=== PATIENT | female | born 1950 | race African-American/Black ===

== ENCOUNTER 2017-12-19 03:44 | Inpatient (IN) ==
[2017-12-19] MEDS ORDERED: niCARdipine INJ 25 MG in SODIUM CHLORIDE 0.9% 240 ML IV SCH (05:00)
[2017-12-19] MEDS ORDERED: niCARdipine 25 MG/10 ML VIAL IV ONE ×2 (05:19→12:17)
[2017-12-19 05:41] LABS: Basophils # 0.1 10*3/uL (0.0-0.2); Basophils % 0.4 % (0.0-0.8); Eosinophils % 0.2 % (0.00-10.9); Hematocrit 39.1 VOL% (35.7-47.0); Hemoglobin 12.9 GM/DL (12.0-16.0); Immature Granulocytes % 0.5 %; Immature Granulocytes Absolute 0.06 #; Lymphocytes % 16.1 % (21.3-54.2); Mean Corpuscular Hemoglobin 30 PG (27-34); Mean Corpuscular Volume 90.7 FL (87-102); Mean Platelet Volume 10.6 FL (9.6-12.0); Monocytes # 0.6 10*3/uL (0.11-0.8); Monocytes % 4.9 % (1.7-12.7); Neutrophils # 9.8 10*3/uL (1.4-7.4); Neutrophils % 77.9 % (38.7-73.9); Platelet Count 250 T/CUMM (130-400); Red Blood Count 4.31 MC/CUMM (3.8-5.5); Red Cell Distribution Width 13.2 % (9.3-17.3); White Blood Count 12.6 T/CUMM (4-12)
[2017-12-19 05:52] LABS: INR 0.9; PT Patient Result 9.8 SECS
[2017-12-19 06:03] LABS: Alanine Aminotransferase 34 U/L (13-56); Albumin 3.8 G/DL (3.4-5.0); Alkaline Phosphatase 103 U/L (45-117); Aspartate Amino Transferase 27 U/L (0-37); Blood Urea Nitrogen 17 MG/DL (7-18); Calcium 9.4 MG/DL (8.5-10.1); Glucose 189 MG/DL (74-106); Osmolality,Calculated 281.7 MOS/KG (273-304); Potassium 3.8 MMOL/L (3.5-5.1); Sodium 138 MMOL/L (136-145); Total Protein 8.2 G/DL (6.4-8.3)
[2017-12-19 06:07] LABS: Apearance,Urine CLEAR (Clear); Bilirubin,Urine Negative (Negative); Blood, Urine Small mg/dL (Negative); Glucose,Urine (UA) 50 mg/dL (Negative); Hyaline Casts,Urine 1 /LPF (0-3); Ketones,Urine Negative (Negative); Mucus,Urine Occasional /LPF (Occasional); Nitrite,Urine Negative (Negative); Protein,Urine 100 MG/DL; RBC,Urine 5 /HPF (0-4); Squamous Epithelial Cell,Urine Occasional /HPF (0-10); Urine Color Straw (Yellow); Urine Urobilinogen < 2.0 EU/DL (0.2-1.0); WBC,Urine 4 /HPF (0-6)
[2017-12-19 06:11] LABS: Troponin I Only 0.067 NG/ML (0.00-0.045)
[2017-12-19 08:12] LABS: Risk Ratio 3.15; VLDL CHOLESTEROL 33.8 MG/DL
[2017-12-19] MEDS ORDERED: GLUCAGON 1 MG VIAL IM PRN (08:20)
[2017-12-19] MEDS ORDERED: DEXTROSE 50% 25 GM/50 ML VIAL IV PRN (08:20)
[2017-12-19] MEDS ORDERED: hydrALAZINE 20 MG/1 ML VIAL IV PRN (10:17)
[2017-12-19] MEDS ORDERED: PANTOPRAZOLE 40 MG TABLET PO ONE (12:09)
[2017-12-19] MEDS: INSULIN LISPRO 100 UNIT/ML SUBCUT SCH ×3 (12:15→21:33)
[2017-12-19] MEDS: PANTOPRAZOLE 40 MG TABLET PO SCH (12:16)
[2017-12-19] MEDS: METOPROLOL SUCCINATE XL 50 MG TABLET PO SCH ×2 (12:16→21:34)
[2017-12-19] MEDS: ASPIRIN EC 81 MG TABLET PO SCH (12:16)
[2017-12-19] MEDS: ATORVASTATIN 40 MG TABLET PO SCH (21:34)
[2017-12-20 05:50] LABS: Basophils % 0.4 % (0.0-0.8); Eosinophils # 0.1 10*3/uL (0.0-0.87); Eosinophils % 1.3 % (0.00-10.9); Hemoglobin 12.2 GM/DL (12.0-16.0); Immature Granulocytes % 0.3 %; Immature Granulocytes Absolute 0.03 #; Lymphocytes # 3.2 10*3/uL (1.4-4.0); Lymphocytes % 34.8 % (21.3-54.2); Mean Corpuscular Hemoglobin 30 PG (27-34); Mean Corpuscular Volume 89.8 FL (87-102); Mean Platelet Volume 10.7 FL (9.6-12.0); Monocytes # 0.7 10*3/uL (0.11-0.8); Monocytes % 7.4 % (1.7-12.7); Neutrophils # 5.1 10*3/uL (1.4-7.4); Neutrophils % 55.8 % (38.7-73.9); Platelet Count 253 T/CUMM (130-400); Red Blood Count 4.12 MC/CUMM (3.8-5.5); Red Cell Distribution Width 13.3 % (9.3-17.3); White Blood Count 9.1 T/CUMM (4-12)
[2017-12-20 06:15] LABS: Calcium 9.2 MG/DL (8.5-10.1); Osmolality,Calculated 280.8 MOS/KG (273-304); Potassium 3.9 MMOL/L (3.5-5.1)
[2017-12-20] MEDS: METOPROLOL SUCCINATE XL 50 MG TABLET PO SCH ×2 (08:00→21:28)
[2017-12-20] MEDS: INSULIN LISPRO 100 UNIT/ML SUBCUT SCH ×4 (08:00→21:27)
[2017-12-20] MEDS: ASPIRIN EC 81 MG TABLET PO SCH (08:00)
[2017-12-20] MEDS: PANTOPRAZOLE 40 MG TABLET PO SCH (08:00)
[2017-12-20] MEDS ORDERED: ENOXAPARIN 40 MG/0.4 ML SYRINGE SUBCUT SCH (13:30)
[2017-12-20] MEDS: CLOPIDOGREL 75 MG TABLET PO SCH (15:48)
[2017-12-20] MEDS: ATORVASTATIN 40 MG TABLET PO SCH (21:27)
[2017-12-20] MEDS: INSULIN GLARGINE 100 UNIT/ML SUBCUT SCH (21:27)
[2017-12-21 05:26] LABS: Basophils # 0.1 10*3/uL (0.0-0.2); Basophils % 1.1 % (0.0-0.8); Eosinophils # 0.2 10*3/uL (0.0-0.87); Eosinophils % 2.1 % (0.00-10.9); Hematocrit 36.8 VOL% (35.7-47.0); Hemoglobin 11.9 GM/DL (12.0-16.0); Immature Granulocytes % 0.4 %; Immature Granulocytes Absolute 0.03 #; Lymphocytes # 3.1 10*3/uL (1.4-4.0); Lymphocytes % 39.5 % (21.3-54.2); Mean Corpuscular HGB Conc 32.3 GM/DL (32-36); Mean Corpuscular Hemoglobin 30 PG (27-34); Mean Corpuscular Volume 91.1 FL (87-102); Mean Platelet Volume 10.5 FL (9.6-12.0); Monocytes # 0.7 10*3/uL (0.11-0.8); Monocytes % 8.3 % (1.7-12.7); Neutrophils # 3.9 10*3/uL (1.4-7.4); Neutrophils % 48.6 % (38.7-73.9); Platelet Count 240 T/CUMM (130-400); Red Blood Count 4.04 MC/CUMM (3.8-5.5)
[2017-12-21 05:51] LABS: Calcium 8.6 MG/DL (8.5-10.1); Osmolality,Calculated 284.7 MOS/KG (273-304)
[2017-12-21] MEDS: INSULIN LISPRO 100 UNIT/ML SUBCUT SCH ×4 (07:47→21:15)
[2017-12-21] MEDS: PANTOPRAZOLE 40 MG TABLET PO SCH (08:04)
[2017-12-21] MEDS: METOPROLOL SUCCINATE XL 50 MG TABLET PO SCH ×2 (08:04→21:13)
[2017-12-21] MEDS: CLOPIDOGREL 75 MG TABLET PO SCH (08:04)
[2017-12-21] MEDS: ATORVASTATIN 40 MG TABLET PO SCH (21:13)
[2017-12-21] MEDS: INSULIN GLARGINE 100 UNIT/ML SUBCUT SCH (21:18)
[2017-12-22] MEDS: CLOPIDOGREL 75 MG TABLET PO SCH (08:15)
[2017-12-22] MEDS: amLODIPine 2.5 MG TABLET PO SCH (08:15)
[2017-12-22] MEDS: METOPROLOL SUCCINATE XL 50 MG TABLET PO SCH ×2 (08:15→21:18)
[2017-12-22] MEDS: INSULIN LISPRO 100 UNIT/ML SUBCUT SCH ×4 (08:15→21:17)
[2017-12-22] MEDS: PANTOPRAZOLE 40 MG TABLET PO SCH (08:15)
[2017-12-22] MEDS ORDERED: INSULIN GLARGINE 100 UNIT/ML SUBCUT SCH (21:00)
[2017-12-22] MEDS: ATORVASTATIN 40 MG TABLET PO SCH (21:17)
[2017-12-23] MEDS: INSULIN LISPRO 100 UNIT/ML SUBCUT SCH ×3 (08:37→16:57)
[2017-12-23] MEDS: METOPROLOL SUCCINATE XL 50 MG TABLET PO SCH (08:38)
[2017-12-23] MEDS: CLOPIDOGREL 75 MG TABLET PO SCH (08:38)
[2017-12-23] MEDS: PANTOPRAZOLE 40 MG TABLET PO SCH (08:38)
[2017-12-23] MEDS: amLODIPine 2.5 MG TABLET PO SCH (08:42)
[2017-12-23] MEDS: amLODIPine 10 MG TABLET PO SCH (16:00)
[2017-12-23] MEDS: INSULIN NPH/REGULAR 70/30 100 UNIT/ML SUBCUT SCH (16:57)
[2017-12-23] MEDS ORDERED: LABETALOL 20 MG/4 ML SYRINGE IV ONE (17:40)
[2017-12-23] MEDS: ATORVASTATIN 40 MG TABLET PO SCH (20:26)
[2017-12-23] MEDS ORDERED: hydrALAZINE 25 MG TABLET PO SCH (21:00)
[2017-12-24] MEDS: INSULIN LISPRO 100 UNIT/ML SUBCUT SCH ×5 (00:07→21:15)
[2017-12-24 04:55] LABS: Basophils # 0.1 10*3/uL (0.0-0.2); Basophils % 0.7 % (0.0-0.8); Eosinophils # 0.2 10*3/uL (0.0-0.87); Eosinophils % 2.4 % (0.00-10.9); Hematocrit 34.8 VOL% (35.7-47.0); Hemoglobin 11.9 GM/DL (12.0-16.0); Immature Granulocytes % 0.3 %; Immature Granulocytes Absolute 0.03 #; Lymphocytes % 33.5 % (21.3-54.2); Mean Corpuscular HGB Conc 34.2 GM/DL (32-36); Mean Corpuscular Hemoglobin 30 PG (27-34); Mean Corpuscular Volume 88.3 FL (87-102); Mean Platelet Volume 10.3 FL (9.6-12.0); Monocytes # 0.7 10*3/uL (0.11-0.8); Monocytes % 7.5 % (1.7-12.7); Neutrophils # 4.9 10*3/uL (1.4-7.4); Neutrophils % 55.6 % (38.7-73.9); Platelet Count 255 T/CUMM (130-400); Red Blood Count 3.94 MC/CUMM (3.8-5.5); Red Cell Distribution Width 13.2 % (9.3-17.3); White Blood Count 8.8 T/CUMM (4-12)
[2017-12-24 05:32] LABS: Calcium 8.5 MG/DL (8.5-10.1); Osmolality,Calculated 284.5 MOS/KG (273-304); Potassium 3.9 MMOL/L (3.5-5.1)
[2017-12-24] MEDS ORDERED: METOPROLOL SUCCINATE XL 100 MG TABLET PO SCH (09:00)
[2017-12-24] MEDS: PANTOPRAZOLE 40 MG TABLET PO SCH (09:13)
[2017-12-24] MEDS: amLODIPine 10 MG TABLET PO SCH (09:13)
[2017-12-24] MEDS: CLOPIDOGREL 75 MG TABLET PO SCH (09:14)
[2017-12-24] MEDS: INSULIN NPH/REGULAR 70/30 100 UNIT/ML SUBCUT SCH (17:12)
[2017-12-24] MEDS: ATORVASTATIN 40 MG TABLET PO SCH (21:14)
[2017-12-25] MEDS ORDERED: INSULIN NPH/REGULAR 70/30 100 UNIT/ML SUBCUT SCH ×3 (07:30→16:25)
[2017-12-25] MEDS: INSULIN LISPRO 100 UNIT/ML SUBCUT SCH ×4 (09:19→20:25)
[2017-12-25] MEDS: amLODIPine 10 MG TABLET PO SCH (09:21)
[2017-12-25] MEDS: CLOPIDOGREL 75 MG TABLET PO SCH (09:22)
[2017-12-25] MEDS: METOPROLOL SUCCINATE XL 100 MG TABLET PO SCH (09:22)
[2017-12-25] MEDS: PANTOPRAZOLE 40 MG TABLET PO SCH (09:22)
[2017-12-25] MEDS ORDERED: INSULIN NPH 100 UNIT/ML SUBCUT ONE (13:35)
[2017-12-25] MEDS: INSULIN NPH/REGULAR 70/30 100 UNIT/ML SUBCUT SCH (16:58)
[2017-12-25] MEDS: ATORVASTATIN 40 MG TABLET PO SCH (20:24)
[2017-12-26 06:59] LABS: Basophils # 0.1 10*3/uL (0.0-0.2); Basophils % 0.6 % (0.0-0.8); Eosinophils # 0.2 10*3/uL (0.0-0.87); Eosinophils % 2.3 % (0.00-10.9); Hematocrit 37.5 VOL% (35.7-47.0); Hemoglobin 12.2 GM/DL (12.0-16.0); Immature Granulocytes % 0.3 %; Immature Granulocytes Absolute 0.02 #; Lymphocytes % 37.7 % (21.3-54.2); Mean Corpuscular HGB Conc 32.5 GM/DL (32-36); Mean Corpuscular Hemoglobin 30 PG (27-34); Mean Corpuscular Volume 91.5 FL (87-102); Mean Platelet Volume 10.2 FL (9.6-12.0); Monocytes # 0.6 10*3/uL (0.11-0.8); Neutrophils # 4.1 10*3/uL (1.4-7.4); Neutrophils % 52.1 % (38.7-73.9); Platelet Count 286 T/CUMM (130-400); Red Cell Distribution Width 13.8 % (9.3-17.3); White Blood Count 7.9 T/CUMM (4-12)
[2017-12-26 07:28] LABS: Osmolality,Calculated 281.5 MOS/KG (273-304)
[2017-12-26] MEDS: INSULIN LISPRO 100 UNIT/ML SUBCUT SCH ×4 (08:30→21:01)
[2017-12-26] MEDS: METOPROLOL SUCCINATE XL 100 MG TABLET PO SCH (09:24)
[2017-12-26] MEDS: amLODIPine 10 MG TABLET PO SCH (09:25)
[2017-12-26] MEDS: PANTOPRAZOLE 40 MG TABLET PO SCH (09:26)
[2017-12-26] MEDS: CLOPIDOGREL 75 MG TABLET PO SCH (09:26)
[2017-12-26] MEDS ORDERED: INSULIN NPH/REGULAR 70/30 100 UNIT/ML SUBCUT SCH (14:09)
[2017-12-26] MEDS: INSULIN NPH/REGULAR 70/30 100 UNIT/ML SUBCUT SCH (16:29)
[2017-12-26] MEDS: ATORVASTATIN 40 MG TABLET PO SCH (21:01)
[2017-12-27] MEDS: INSULIN LISPRO 100 UNIT/ML SUBCUT SCH ×4 (08:22→21:23)
[2017-12-27] MEDS: CLOPIDOGREL 75 MG TABLET PO SCH (09:16)
[2017-12-27] MEDS: PANTOPRAZOLE 40 MG TABLET PO SCH (09:17)
[2017-12-27] MEDS: METOPROLOL SUCCINATE XL 100 MG TABLET PO SCH (09:17)
[2017-12-27] MEDS: amLODIPine 10 MG TABLET PO SCH (09:17)
[2017-12-27] MEDS ORDERED: INSULIN NPH/REGULAR 70/30 100 UNIT/ML SUBCUT SCH (15:03)
[2017-12-27] MEDS: metFORMIN 500 MG TABLET PO SCH (16:14)
[2017-12-27] MEDS: INSULIN NPH/REGULAR 70/30 100 UNIT/ML SUBCUT SCH (16:16)
[2017-12-27] MEDS: ATORVASTATIN 40 MG TABLET PO SCH (20:04)
[2017-12-28] MEDS: METOPROLOL SUCCINATE XL 100 MG TABLET PO SCH (08:54)
[2017-12-28] MEDS: metFORMIN 500 MG TABLET PO SCH (08:54)
[2017-12-28] MEDS: amLODIPine 10 MG TABLET PO SCH (08:54)
[2017-12-28] MEDS: PANTOPRAZOLE 40 MG TABLET PO SCH (08:55)
[2017-12-28] MEDS: INSULIN LISPRO 100 UNIT/ML SUBCUT SCH ×2 (08:55→11:59)
[2017-12-28] MEDS: CLOPIDOGREL 75 MG TABLET PO SCH (08:55)
[2017-12-28] MEDS ORDERED: METOPROLOL SUCCINATE XL 100 MG TABLET PO SCH (11:27)
[2017-12-28 12:26] VITALS: BP 164/75
== END 2017-12-28 12:55 | disposition swing bed (61) | DRG 65 ==
LOC: EDBD → EDUNIT# → N.ED 03:44 → N.EDINP 07:06 → SUATTDRO 07:06 → N.CC 14:36 → N.2E 12-22 17:46
PROVIDERS: ADMIT Internal Medicine; ATTEND Hospitalist

== ENCOUNTER 2021-02-03 14:40 | Observation (INO) ==
[2021-02-03] MEDS ORDERED: ONDANSETRON 4 MG/2 ML VIAL IV STA (16:05)
[2021-02-03] MEDS ORDERED: SODIUM CHLORIDE 0.9% 1,000 ML IV STA (16:05)
[2021-02-03] MEDS ORDERED: PANTOPRAZOLE 40 MG VIAL IV STA (16:05)
[2021-02-03] MEDS ORDERED: METOCLOPRAMIDE 10 MG/2 ML VIAL IV STA (16:05)
[2021-02-03 16:39] LABS: Basophils # 0.1 10*3/uL (0.0-0.2); Basophils % 0.4 % (0.0-0.8); Eosinophils # 0.1 10*3/uL (0.0-0.87); Eosinophils % 0.8 % (0.00-10.9); Hematocrit 35.2 VOL% (35.7-47.0); Hemoglobin 11.5 GM/DL (12.0-16.0); Immature Granulocytes % 0.7 %; Immature Granulocytes Absolute 0.08 #; Lymphocytes # 1.9 10*3/uL (1.4-4.0); Lymphocytes % 16.4 % (21.3-54.2); Mean Corpuscular HGB Conc 32.7 GM/DL (32-36); Mean Corpuscular Volume 92.1 FL (87-102); Mean Platelet Volume 10.8 FL (9.6-12.0); Monocytes % 5.2 % (1.7-12.7); Neutrophils % 76.5 % (38.7-73.9); Platelet Count 198 T/CUMM (130-400); Red Blood Count 3.82 MC/CUMM (3.8-5.5); Red Cell Distribution Width 13.5 % (9.3-17.3); White Blood Count 11.5 T/CUMM (4-12)
[2021-02-03 17:20] LABS: Alanine Aminotransferase 24 U/L (13-56); Albumin 3.9 G/DL (3.4-5.0); Alkaline Phosphatase 126 U/L (45-117); Aspartate Amino Transferase 19 U/L (0-37); Blood Urea Nitrogen 19 MG/DL (7-18); CKMB % 1.9 %; Calcium 9.2 MG/DL (8.5-10.1); Carbon Dioxide 23 MMOL/L (21-32); Estimated Glom Filtration Rate 41 ML/MIN; Glucose 375 MG/DL (74-106); Osmolality,Calculated 289.8 MOS/KG (273-304); Potassium 3.6 MMOL/L (3.5-5.1); Sodium 137 MMOL/L (136-145); Total Protein 8.6 G/DL (6.4-8.2)
[2021-02-03 17:31] LABS: Bacteria,Urine Occasional /HPF (Few); Bilirubin,Urine Negative (Negative); Blood, Urine Negative (Negative); Glucose,Urine (UA) >=500 mg/dL (Negative); Ketones,Urine Negative (Negative); Nitrite,Urine Negative (Negative); Protein,Urine Negative; RBC,Urine <1 /HPF (0-4); Squamous Epithelial Cell,Urine Occasional /HPF (0-10); Urine Appearance CLEAR (Clear); Urine Color Straw (Yellow); Urine Specific Gravity 1.013 (1.001-1.035); Urine Urobilinogen < 2.0 EU/DL (0.2-1.0)
[2021-02-03] MEDS: SODIUM CHLORIDE 0.9% 1,000 ML IV SCH (19:40)
[2021-02-03] MEDS ORDERED: ONDANSETRON 4 MG/2 ML VIAL IV PRN (19:45)
[2021-02-03] MEDS ORDERED: DEXTROSE 50% 25 GM/50 ML VIAL IV PRN (19:45)
[2021-02-03] MEDS ORDERED: GLUCAGON 1 MG VIAL IM PRN (19:45)
[2021-02-03] MEDS ORDERED: hydrALAZINE 20 MG/1 ML VIAL IV PRN (19:45)
[2021-02-03] MEDS ORDERED: cloNIDine 0.2 MG/24 HR PATCH TRANSDERM SCH (20:00)
[2021-02-03] MEDS ORDERED: INSULIN GLARGINE 100 UNIT/ML SUBCUT SCH (21:00)
[2021-02-03] MEDS: INSULIN REGULAR 100 UNIT/ML SUBCUT SCH (21:57)
[2021-02-03] MEDS: ESCITALOPRAM 10 MG TABLET PO SCH (22:01)
[2021-02-03] MEDS: ENOXAPARIN 40 MG/0.4 ML SYRINGE SUBCUT SCH (22:01)
[2021-02-03] MEDS: SODIUM CHLORIDE 0.45% 1,000 ML IV SCH (22:45)
[2021-02-04 05:28] LABS: Basophils # 0.1 10*3/uL (0.0-0.2); Basophils % 0.4 % (0.0-0.8); Eosinophils % 0.1 % (0.00-10.9); Hematocrit 33.8 VOL% (35.7-47.0); Hemoglobin 11.3 GM/DL (12.0-16.0); Immature Granulocytes % 0.8 %; Immature Granulocytes Absolute 0.09 #; Lymphocytes # 2.2 10*3/uL (1.4-4.0); Lymphocytes % 18.3 % (21.3-54.2); Mean Corpuscular HGB Conc 33.4 GM/DL (32-36); Mean Corpuscular Volume 90.4 FL (87-102); Mean Platelet Volume 10.8 FL (9.6-12.0); Monocytes % 7.4 % (1.7-12.7); Platelet Count 245 T/CUMM (130-400); Red Blood Count 3.74 MC/CUMM (3.8-5.5); Red Cell Distribution Width 13.5 % (9.3-17.3); White Blood Count 11.9 T/CUMM (4-12)
[2021-02-04] MEDS: SODIUM CHLORIDE 0.9% 1,000 ML IV SCH (05:49)
[2021-02-04 05:55] LABS: Calcium 8.7 MG/DL (8.5-10.1); Osmolality,Calculated 280.8 MOS/KG (273-304); Potassium 3.4 MMOL/L (3.5-5.1)
[2021-02-04] MEDS: SODIUM CHLORIDE 0.45% 1,000 ML IV SCH ×3 (06:13→22:48)
[2021-02-04] MEDS ORDERED: amLODIPine 10 MG TABLET PO SCH (09:00)
[2021-02-04] MEDS ORDERED: METOPROLOL SUCCINATE XL 50 MG TABLET PO SCH ×2 (09:00→21:00)
[2021-02-04] MEDS: MAGNESIUM CHLORIDE 64 MG TABLET PO SCH (09:14)
[2021-02-04] MEDS: CLOPIDOGREL 75 MG TABLET PO SCH (09:14)
[2021-02-04] MEDS: sitaGLIPtin 100 MG TABLET PO SCH (09:15)
[2021-02-04] MEDS: INSULIN REGULAR 100 UNIT/ML SUBCUT SCH ×4 (09:17→21:11)
[2021-02-04] MEDS: PANTOPRAZOLE 40 MG VIAL IV SCH (09:17)
[2021-02-04] MEDS ORDERED: INSULIN NPH/REGULAR 70/30 100 UNIT/ML SUBCUT SCH ×2 (11:00→16:30)
[2021-02-04] MEDS ORDERED: POTASSIUM CHLORIDE 20 MEQ TABLET PO ONE (11:00)
[2021-02-04] MEDS: carvediloL 25 MG TABLET PO SCH ×2 (12:04→17:06)
[2021-02-04] MEDS: LOSARTAN/HCTZ 50-12.5 MG TABLET PO SCH (12:05)
[2021-02-04] MEDS ORDERED: amLODIPine 5 MG TABLET PO SCH (15:00)
[2021-02-04] MEDS ORDERED: DEXTROSE 50% 25 GM/50 ML VIAL IV PRN (15:08)
[2021-02-04] MEDS ORDERED: INSULIN GLARGINE 100 UNIT/ML SUBCUT SCH (21:00)
[2021-02-04] MEDS: ESCITALOPRAM 10 MG TABLET PO SCH (21:10)
[2021-02-04] MEDS: ENOXAPARIN 40 MG/0.4 ML SYRINGE SUBCUT SCH (21:12)
[2021-02-05] MEDS: SODIUM CHLORIDE 0.45% 1,000 ML IV SCH (02:34)
[2021-02-05 05:05] LABS: Basophils % 0.5 % (0.0-0.8); Eosinophils # 0.1 10*3/uL (0.0-0.87); Eosinophils % 1.7 % (0.00-10.9); Hematocrit 33.4 VOL% (35.7-47.0); Hemoglobin 11.1 GM/DL (12.0-16.0); Immature Granulocytes % 0.8 %; Immature Granulocytes Absolute 0.06 #; Lymphocytes # 2.1 10*3/uL (1.4-4.0); Lymphocytes % 26.8 % (21.3-54.2); Mean Corpuscular HGB Conc 33.2 GM/DL (32-36); Mean Corpuscular Volume 90.3 FL (87-102); Mean Platelet Volume 10.5 FL (9.6-12.0); Monocytes % 8.6 % (1.7-12.7); Neutrophils % 61.6 % (38.7-73.9); Platelet Count 226 T/CUMM (130-400); White Blood Count 7.7 T/CUMM (4-12)
[2021-02-05 05:54] LABS: Calcium 8.5 MG/DL (8.5-10.1); Osmolality,Calculated 274.8 MOS/KG (273-304); Potassium 3.8 MMOL/L (3.5-5.1)
[2021-02-05] MEDS: PANTOPRAZOLE 40 MG VIAL IV SCH (08:57)
[2021-02-05] MEDS: MAGNESIUM CHLORIDE 64 MG TABLET PO SCH (08:57)
[2021-02-05] MEDS: INSULIN REGULAR 100 UNIT/ML SUBCUT SCH ×2 (08:57→12:01)
[2021-02-05] MEDS: carvediloL 25 MG TABLET PO SCH (08:57)
[2021-02-05] MEDS: CLOPIDOGREL 75 MG TABLET PO SCH (08:58)
[2021-02-05] MEDS: sitaGLIPtin 100 MG TABLET PO SCH (08:58)
[2021-02-05] MEDS: LOSARTAN/HCTZ 50-12.5 MG TABLET PO SCH (08:58)
[2021-02-05] MEDS ORDERED: amLODIPine 10 MG TABLET PO SCH (09:00)
[2021-02-05] MEDS ORDERED: CHOLECALCIFEROL 1,000 UNIT TABLET PO SCH (09:00)
[2021-02-05] MEDS ORDERED: ERGOCALCIFEROL 50,000 UNIT CAPSULE PO ONE (09:00)
[2021-02-05 11:55] VITALS: BP 138/62
== END 2021-02-05 13:20 | disposition home or self-care (01) ==
LOC: N.EDINP 14:40 → N.ED 14:40 → N.EDINP 21:29 → N.5E 22:28
PROVIDERS: ADMIT Hospitalist; ATTEND Hospitalist